=== PATIENT | female | born 1980 | race Two or more races ===

== ENCOUNTER 2017-01-13 02:33 | Emergency (ER) | payer SELFPAY ==
[~2017-01-13] VITALS: Ht 165.1 cm; Wt 72.6 kg
--- NOTE | 2017-01-13 02:36 | Emergency Room Report ---
History of Present Illness General Chief Complaint: Altered Level of Consciousness Source: Patient, EMS Present Illness HPI Is a 36-year-old female brought in by EMS for alcohol intoxication. She was at a [employer] party and was drinking heavily. A friend said she was acting normally and then became incoherent. There were concern that someone has some drugs into her system. Patient denies any trauma. Denies any drug use. Vomiting at the scene. Allergies: Coded Allergies: UNABLE TO ASSESS (Unverified , 01/13/17) Patient History Past Medical History: none, see triage record, old chart reviewed Past Surgical History: none Pertinent Family History: none Social History: Reports: alcohol use Last Menstrual Period: unknown Now: No Immunizations: other Reviewed Nursing Documentation: PMH: Agreed, PSxH: Agreed Nursing Documentation-PMH Past Medical History Deferred: Pt Cognitively Impaired Review of Systems Eye: Denies: eye pain, blurred vision ENT: Denies: ear pain, nose congestion, throat swelling Respiratory: Denies: cough, shortness of breath Cardiovascular: Denies: chest pain, palpitations Gastrointestinal: Denies: abdominal pain, diarrhea, nausea, vomiting Musculoskeletal: Denies: back pain, joint pain Skin: Denies: rash Neurological: Denies: headache, numbness Endocrine: Denies: increased thirst, increased urine Hematologic/Lymphatic: Denies: easy bruising All Other Systems: negative except mentioned in HPI Physical Exam Vital Signs Date Time Temp Pulse Resp B/P (MAP) Pulse Ox O2 Delivery O2 Flow Rate FiO2 01/13/17 02:27 97.7 103 16 132/90 99 Room Air vitals normal Sp02 EP Interpretation: reviewed, normal General Appearance: well appearing, no apparent distress, other - Intoxicated Head: normocephalic, atraumatic Eyes: bilateral eye PERRL, bilateral eye EOMI ENT: hearing grossly normal, normal pharynx Neck: full range of motion, supple, no meningismus Respiratory: chest non-tender, lungs clear, normal breath sounds Cardiovascular #1: regular rate, rhythm, no murmur Gastrointestinal: normal bowel sounds, non tender, no mass, no organomegaly, no bruit, non-distended Musculoskeletal: back normal, normal range of motion Psychiatric: mood/affect normal Skin: warm/dry Medical Decision Making Diagnostic Impression: Primary Impression: Alcohol intoxication Qualified Codes: F10.920 - Alcohol use, unspecified with intoxication, uncomplicated ER Course Patient with alcohol intoxication. No trauma to warrant CT scan or x-ray. Will observe for clinical sobriety. Last Vital Signs Date Time Temp Pulse Resp B/P (MAP) Pulse Ox O2 Delivery O2 Flow Rate FiO2 01/13/17 02:27 97.7 103 16 132/90 99 Room Air Status: improved Disposition: HOME, SELF-CARE Condition: Stable Additional Instructions: abstain from drinking to excess. Followup with your Dr. in 7 days. Return if worse. KYM ADAMS M.D. Jan 13, 2017 02:36
[2017-01-13 05:55] VITALS: BP 128/88
== END 2017-01-13 05:56 | disposition home or self-care (01) ==
LOC: EDBD 02:33 → EMR 03:31
DX: F10.29 Alcohol dependence with unspecified alcohol-induced disorder (principal)
CPT/HCPCS: 36415; 96374; 99284; G0480; J2405; 80329